=== PATIENT | male | born 1975 | race Hispanic/Latino ===

== ENCOUNTER → 2016-04-06 | Outpatient (CLI) | payer OTHER ==
--- NOTE | 2016-04-11 10:34 | SLEEPCENT ---
DATE OF STUDY: 04/06/2016 ORDERING PROVIDER: Karen Cornell NP Nocturnal polysomnography was performed for the titration of pressure therapy in this patient with a diagnosis of obstructive sleep apnea syndrome, confirmed by home testing, which revealed a respiratory event index of 17.1. For testing, the patient was fit with a [employer] Quattro full face mask of small size. 5 cm of water pressure were applied to the circuit, and the lights were extinguished. 6 hours and 52 minutes of data were reviewed. There were 346 minutes of sleep identified. Sleep latency was prolonged at 36 minutes. Rapid eye movement (REM) latency was short at 46 minutes. Sleep architecture improved with pressure therapy. Overall sleep efficiency was 85.1%. The patient's electrocardiogram (EKG) showed a sinus rhythm with an average heart rate of 62 beats per minute. Electroencephalogram (EEG) showed mild coarsening but otherwise normal waveforms for awake and sleep. Respiratory events were reasonably palliated with continuous positive airway pressure (CPAP) at a pressure of +5. Late in the study, a trial of bilevel pressure was attempted. No further improvement in sleep was seen. Some limb activity was noted over the course of the study. Limb movement arousal index was 7.1. IMPRESSION: Obstructive sleep apnea syndrome (G47.33). RECOMMENDATION: Nightly use of pressure therapy 5 cm of water.
== END ==
LOC: M SLEEP 18:46
PROVIDERS: ATTEND Nurse Practitioner Adult Health
DX: G47.33 Obstructive sleep apnea (adult) (pediatric) (principal)

== ENCOUNTER 2016-07-01 13:33 | Emergency (ER) | payer OTHER ==
[~2016-07-01] VITALS: Ht 185.4 cm; Wt 90.3 kg
[2016-07-01 13:33] VITALS: BP 149/87
[2016-07-01] MEDS ORDERED: IBUP600T26 PO (13:57)
[2016-07-01] MEDS ORDERED: CYCL10TA PO (13:57)
== END 2016-07-01 14:15 | disposition home or self-care (01) ==
LOC: M ED 14:12
DX: S33.5XXA Sprain of ligaments of lumbar spine, initial encounter (principal); X58.XXXA Exposure to other specified factors, initial encounter; Y92.89 Other specified places as the place of occurrence of the external cause; Y93.89 Activity, other specified; Y99.9 Unspecified external cause status

== ENCOUNTER → 2018-04-08 | Outpatient (REF) | payer OTHER ==
[~2018-04-08] MED LIST: CYCL10TA PO; IBUP-1022 PO
[2018-04-08 20:08] LABS: BASO % 0.4 % (0.0-1.0); EOS # 0.2 10^3/uL (0.0-0.50); EOS % 2.2 % (0.0-3.0); HEMATOCRIT 44.9 % (42.0-52.0); HEMOGLOBIN 14.8 g/dl (13.5-17.5); MEAN CORPUSCULAR VOLUME 87.9 fl (80.0-96.0); MONO # 0.8 10^3/uL (0.0-0.8); MONO % 10.8 % (0.0-5.0); NEUTROPHILS # 4.6 10^3/uL (1.8-7.7); NEUTROPHILS % 60.2 % (36.0-66.0); PLATELET COUNT, AUTOMATED 237 10^3/uL (150-450); RED BLOOD COUNT 5.11 10^6/uL (4.30-6.10); WHITE BLOOD COUNT 7.7 10^3/uL (4.0-10.0)
[2018-04-08 20:40] LABS: ALBUMIN 4.1 GM/DL (3.2-5.2); ALT/SGPT 50 U/L (12-78); BILIRUBIN,TOTAL 0.3 MG/DL (0.2-1.0); BLOOD UREA NITROGEN 13 MG/DL (7-18); CALCIUM LEVEL 8.7 MG/DL (8.5-10.1); CARBON DIOXIDE LEVEL 30 MEQ/L (21-32); CHLORIDE LEVEL 103 MEQ/L (98-107); CHOLESTEROL LEVEL 239 MG/DL (<200); CHOLESTEROL RISK RATIO 7.242 (<5); CREATININE FOR GFR 0.94 MG/DL (0.70-1.30); GLOMERULAR FILTRATION RATE > 60.0 (>60); GLUCOSE, FASTING 95 MG/DL (70-100); HDL CHOLESTEROL 33 MG/DL (>40); NON-HDL-C 206 MG/DL; POTASSIUM SERUM 4.1 MEQ/L (3.5-5.1); SODIUM LEVEL 139 MEQ/L (136-145); THYROID STIMULATING HORMONE 0.897 uIU/ML (0.358-3.740); TOTAL 25(OH) VITAMIN D 15.7 NG/ML (30.0-100.0); TOTAL PROTEIN 7.8 GM/DL (6.4-8.2); TRIGLYCERIDES LEVEL 497 MG/DL (<150)
== END ==
LOC: M LAB REF 19:22
PROVIDERS: ATTEND Nurse Practitioner Family
DX: Z13.9 Encounter for screening, unspecified (principal)